=== PATIENT | male | born 2000 | race Caucasian/White ===

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

== ENCOUNTER 2018-11-23 20:40 | Emergency (ER) | payer SELFPAY ==
[2018-11-23] MEDS ORDERED: ONDANSETRON 4 MG ODT TABLET SL ONE (21:11)
--- NOTE | 2018-11-23 21:12 | Emergency Department Record ---
History of Present Illness - General Chief complaint: Nausea, Vomiting, Diarrhea Stated complaint: NAUSEA Time Seen by Provider: 11/23/18 20:57 Source: Patient Mode of Arrival: Ambulatory Limitations: No limitations - History of Present Illness Initial comments: pt has sore throat. nausea, cough, rhinitis MD complaint: Nausea Onset/Timin -: Days(s) Severity: Mild Severity scale (1-10): 4 Quality: Aching Consistency: Constant, Intermittent Associated Symptoms: Cough, Nausea/vomiting, Other - Related Data Previous Rx's Medication Instructions Recorded Ondansetron [Zofran Odt] 4 mg PO Q8H #7 tab.rapdis 11/23/18 Allergies Allergy/AdvReac Type Severity Reaction Status Date / Time No Known Drug Allergies Allergy Verified 11/23/18 20:49 Travel Screening - Travel/Exposure Within Last 30 Days Have you traveled within the last 30 days?: No - Travel/Exposure Within Last Year Have you traveled outside the [place] in the last year?: No - Additonal Travel Details Have you been exposed to anyone with a communicable illness?: No - Travel Symptoms Symptom Screening: None Review of Systems Reviewed: No additional complaints except as noted below Constitutional: Reports: As per HPI. Denies: Chills, Fever, Malaise, Night sweats, Weakness, Weight change Eyes: Reports: As per HPI. Denies: Eye discharge, Eye pain, Photophobia, Vision change ENT: Reports: As per HPI, Congestion, Throat pain. Denies: Dental pain, Ear pain, Epistaxis, Hearing loss Respiratory: Reports: As per HPI. Denies: Cough, Dyspnea, Hemoptysis, Stridor, Wheezes Cardiovascular: Reports: As per HPI. Denies: Arrhythmia, Chest pain, Dyspnea on exertion, Edema, Murmurs, Orthopnea, Palpitations, Paroxysmal nocturnal dyspnea, Rheumatic Fever, Syncope Endocrine: Reports: As per HPI. Denies: Fatigue, Heat or cold intolerance, Polydipsia, Polyuria Gastrointestinal: Reports: As per HPI, Nausea. Denies: Abdominal pain, Constipation, Diarrhea, Hematemesis, Hematochezia, Melena, Vomiting Genitourinary: Reports: As per HPI. Denies: Dysuria, Frequency, Hematuria, Incontinence, Retention, Testicular pain, Testicular mass, Urgency Musculoskeletal: Reports: As per HPI. Denies: Arthralgia, Back pain, Gout, Joint swelling, Myalgia, Neck pain Skin: Reports: As per HPI. Denies: Bruising, Change in color, Change in hair/n ails, Lesions, Pruritus, Rash Neurological: Reports: As per HPI. Denies: Abnormal gait, Confusion, Headache, Numbness, Paresthesias, Seizure, Tingling, Tremors, Vertigo, Weakness Psychiatric: Reports: As per HPI. Denies: Anxiety, Auditory hallucinations, Depression, Homicidal thoughts, Suicidal thoughts, Visual hallucinations Hematological/Lymphatic: Reports: As per HPI. Denies: Anemia, Blood Clots, Easy bleeding, Easy bruising, Swollen glands Past Medical History - SOCIAL HISTORY Smoking Status: Never smoker Alcohol Use: None Drug Use: None - RESPIRATORY Hx Respiratory Disorders: Yes Hx Asthma: Yes (child grew out of it) - CARDIOVASCULAR Hx Cardio Disorders: No - NEURO Hx Neuro Disorders: No - GI Hx GI Disorders: No - Hx Genitourinary Disorders: No - ENDOCRINE Hx Endocrine Disorders: No - MUSCULOSKELETAL Hx Musculoskeletal Disorders: No Comment:: recent rt clavicle fx 06/25 - PSYCH Hx Psych Problems: Yes Hx Anxiety: Yes Hx Depression: Yes Comment:: claustrophobia - HEMATOLOGY/ONCOLOGY Hx Hematology/Oncology Disorders: No Family Medical History Any Significant Family History?: Yes Hx Cancer: Grandparents Hx Diabetes: Grandparents Hx Heart Disease: Grandparents Physical Exam - General General Appearance: Alert, Oriented x3, Cooperative, No acute distress - Head Head exam: Normal inspection - Eye Eye exam: Normal appearance, PERRL, EOMI Pupils: Normal accommodation - ENT ENT exam: Normal exam, Mucous membranes moist, Normal external ear exam, Normal orophraynx, TM's normal bilaterally Ear exam: Normal external inspection. negative: External canal tenderness Nasal Exam: Normal inspection. negative: Discharge, Sinus tenderness Mouth exam: Normal external inspection, Tongue normal Teeth exam: Normal inspection. negative: Dental caries Throat exam: Tonsillar erythema, Tonsillomegaly. negative: Tonsillar exudate - Neck Neck exam: Normal inspection, Full ROM, Lymphadenopathy. negative: Tenderness - Respiratory Respiratory exam: Normal lung sounds bilaterally. negative: Respiratory distress - Cardiovascular Cardiovascular Exam: Regular rate, Normal rhythm, Normal heart sounds - GI/Abdominal GI/Abdominal exam: Soft, Normal bowel sounds. negative: Tenderness - Rectal Rectal exam: Deferred - exam: Deferred - Extremities Extremities exam: Normal inspection, Full ROM, Normal capillary refill. negative: Tenderness - Back Back exam: Reports: Normal inspection, Full ROM. Denies: Muscle spasm, Rash noted, Tenderness - Neurological Neurological exam: Alert, Normal gait, Oriented X3, Reflexes normal - Psychiatric Psychiatric exam: Normal affect, Normal mood - Skin Skin exam: Dry, Intact, Normal color, Warm Course Vital Signs 11/23/18 20:44 Temperature 98.2 F Pulse Rate [ 58 L Left] Respiratory 16 Rate Blood Pressure 150/82 [Left] Pulse Ox 100 - Reevaluation(s) Reevaluation #1: 11/23/18 22:00 pt feels better Medical Decision Making - Lab Data Result diagrams: 11/23/18 21:29 Lab Results 11/23/18 Range/Units Unknown Group A Strep Screen Negative (NEGATIVE) Disposition Disposition: Discharge Clinical Impression: Viral syndrome Disposition: Home, Self-Care Condition: (1) Good Instructions: Viral Syndrome (ED) Additional Instructions: follow up with family doctor. return sooner if worse. push fluids. rest. tylenol and motrin. Prescriptions: Ondansetron [Zofran Odt] 4 mg PO Q8H #7 tab.rapdis Forms: Patient Portal Access, Return to Work/School Quality - Quality Measures Quality Measures: N/A - Blood Pressure Screening Does Patient Have Any of the Following: No Blood Pressure Classification: Pre-Hypertensive BP Reading Systolic Measurement: 150 Diastolic Measurement: 82 Screening for High Blood Pressure: < Pre-Hypertensive BP, F/U Documented > [G8950] Pre-Hypertensive Follow-up Interventions: Follow-up with rescreen every year.
[2018-11-23 21:33] LABS: ABSOLUTE NEUTROPHIL COUNT 5.54; BASO % 0.6 % (0-6); EOS % 1.2 % (0-6); GRAN % 63.8 % (47-80); HEMATOCRIT 45.6 % (42.0-52.0); HEMOGLOBIN 15.8 gm/dl (14.0-18.0); LYMPH % 25.3 % (16-45); MEAN CELL VOLUME 85.1 fl (81-97); MEAN CORPUSCULAR HEMOGLOBIN 29.5 pg (27-33); MEAN CORPUSCULAR HGB CONC 34.6 g/dl (32-36); MEAN PLATELET VOLUME 10.4 fl (7.4-10.4); MONO % 9.1 % (0-9); PLATELET COUNT 251 K/uL (130-400); RED BLOOD COUNT 5.36 M/uL (4.40-5.70); RED CELL DISTRIBUTION WIDTH 13.3 % (11.5-14.5); WHITE BLOOD COUNT W/O DIFF 8.7 K/uL (4.2-12.2)
--- NOTE | 2018-11-24 12:40 | RADIOLOGY REPORT ---
EXAM: CHEST, TWO VIEWS HISTORY: COUGH. TECHNIQUE: PA and lateral views of the chest were obtained. Comparison: No prior chest x-ray. FINDINGS: The heart size is normal. No definite acute infiltrate seen. No pleural effusion or pneumothorax evident. Minor thoracic curve to the right. Postop plate and screw fixation device along the dorsal aspect of the right clavicle. IMPRESSION: 1. POSTOP CHANGES RIGHT CLAVICLE. 2. NO ACUTE INFILTRATE IDENTIFIED. JOB NUMBER: [id number] MTDD
== END 2018-11-23 22:18 | disposition home or self-care (01) ==
LOC: ER 20:40
DX: B34.9 Viral infection, unspecified (principal); R11.2 Nausea with vomiting, unspecified; R19.7 Diarrhea, unspecified; R05 Cough; J02.9 Acute pharyngitis, unspecified
CPT/HCPCS: 71046; 85025; 86308; 87880; 99283